=== PATIENT | female | born 1970 | race Caucasian/White ===

== ENCOUNTER 2017-01-10 11:40 | Observation (INO) | payer BC ==
--- NOTE | ~2017-01-10 | HP ---
Unit #: [id number] #: [id number] Patient: LIDYA DELGADO [id number] [address] [place], [place] [address] [id number] I MR#: [id number] NAME: LIDYA DELGADO. ROOM: 39033 Age: 46 Sex: F Admission Date: 01/10/2017 : 1970 Attending Physician: Arlette Kincaid M.D. Primary Care Physician: Faviola Tam A.P.R.N. HISTORY AND PHYSICAL HISTORY OF PRESENT ILLNESS This is a 46-year-old white female who is admitted with the complaint of chest pain. She says for the past three weeks she has had intermittent episodes of substernal chest pressure that radiates to both arms associated with palpitations, dyspnea, and diaphoresis. Her only relief is when she lies down. This morning at 4 a.m. she woke up and had chest pain with nausea. Later she vomiting nonbloody emesis. She had diaphoresis and felt her heart beating fast. She was short of breath. She came to the emergency room for evaluation where she was found to have EKG changes with anterolateral ischemia. Previous EKG in 2010 showed no evidence of ischemia. She was treated with aspirin and nitrates. She has risk factors for ischemic heart disease that include hyperlipidemia, diabetes, obesity, nicotine abuse. She has been told in the past that she has had hypertension but is not on medications. PAST MEDICAL HISTORY 1. Hypertension, untreated. 2. Hyperlipidemia. 3. Diabetes mellitus type 2. 4. Obesity. 5. Active smoker. 6. Osteoarthritis. 7. Chronic back pain. PAST SURGICAL HISTORY Back surgery. HOME MEDICATIONS 1. Janumet 50/500 one tablet b.i.d. 2. Baclofen 10 mg t.i.d. p.r.n. 3. Lipitor 20 mg daily. 4. Ultram 50 mg q.i.d. ALLERGIES No known drug allergies. SOCIAL HISTORY The patient is and unemployed. She smokes one pack of cigarettes daily for the past 30 years. She denies illicit drug and alcohol use. FAMILY HISTORY Both parents of cancer. No coronary artery disease in her siblings. PHYSICAL EXAMINATION Unit #: [id number] #: [id number] Patient: LIDYA DELGADO VITAL SIGNS: Blood pressure 140/70, heart rate 78, temperature 97.9, BMI 25. GENERAL: This is a mildly obese, 46-year-old white female who is in no acute respiratory distress. NEUROLOGIC: She is awake, alert, and oriented, presents no focal weaknesses. NECK: Trachea is midline. No thyromegaly or lymphadenopathy. No jugular venous distention. LUNGS: Diminished without rales, rhonchi or wheezes. HEART: S1, S2. Heart sounds normal. No murmurs, rubs, or clicks. Regular rate and rhythm. ABDOMEN: Soft, nontender, good bowel sounds present. No organomegaly. EXTREMITIES: Without leg edema. SKIN: Warm and dry. DIAGNOSTIC STUDIES LABORATORY: Glucose 251, BUN 16, creatinine 0.6, sodium 138, potassium 4.1. CKMB 1.5, troponin less than 0.05. White count 13.2, hemoglobin 12.2, hematocrit 39.6, platelet count 280. IMAGING: Chest x-ray shows questionable scarring or atelectasis in the left lung base. No other active disease. CARDIOVASCULAR: EKG sinus rhythm with the rate of 84 beats per minute with OR interval of 106. There are anterolateral ischemic changes with T-wave inversion in V1 through V5. Question of old inferior infarct with Q waves noted in III and aVF. IMPRESSION 1. Acute coronary syndrome. 2. Hypertension. 3. Hyperlipidemia. 4. Diabetes mellitus type 2. 5. Nicotine abuse. 6. Obesity. PLAN 1. The patient's symptoms are typical for ischemic heart disease. She has multiple risk factors. Will recommend cardiac catheterization. Risks and benefits have been discussed with the patient and she is agreeable. 2. Start her on anticoagulation with aspirin and Lovenox. Will continue statin and add beta blas. 3. TSH and lipid profile will be obtained. 4. Repeat troponin and EKG to rule out myocardial infarction. 5. Encourage the patient to quit smoking. 6. Plan for cardiac catheterization today. Dictated by Sarah Cervantes M.D. AEP/crystal TD: 01/10/2017 17:11 Unit #: [id number] #: [id number] Patient: LIDYA DELGADO JOB #: [id number] HISTORY AND PHYSICAL Page 1 of 1 X Clinton De La Paz APRN X HISTORY AND PHYSICAL
--- NOTE | ~2017-01-10 | EKG ---
PATIENT: LIDYA DELGADO UNIT #: [id number] Ventricular Rate: 69 BPM Atrial Rate: 69 BPM P-R Interval: 124 ms QRS Duration: 82 ms Q-T Interval: 420 ms QTC Calculation(Bezet): 450 ms P [place]: 55 degrees Calculated R [place]: 12 degrees Calculated T [place]: 88 degrees Diagnosis Line: Normal sinus rhythm Diagnosis Line: Inferior infarct (cited on or before 10-JAN-2017) Diagnosis Line: T wave abnormality, consider anterolateral Diagnosis Line: ischemia Diagnosis Line: Abnormal ECG Diagnosis Line: When compared with ECG of 10-JAN-2017 11:49, Diagnosis Line: Nonspecific T wave abnormality, worse in Lateral Diagnosis Line: leads Diagnosis Line: Confirmed by BENITA BABB MD ([id number]) on Diagnosis Line: 01/12/2017 10:43:13 AM INTERPRETING MD: FRANCES
--- NOTE | ~2017-01-10 | EKG ---
PATIENT: LIDYA DELGADO UNIT #: [id number] Ventricular Rate: 84 BPM Atrial Rate: 84 BPM P-R Interval: 106 ms QRS Duration: 86 ms Q-T Interval: 354 ms QTC Calculation(Bezet): 418 ms P [place]: 61 degrees Calculated R [place]: 22 degrees Calculated T [place]: 69 degrees Diagnosis Line: Sinus rhythm with short MT Diagnosis Line: Possible Inferior infarct , age undetermined Diagnosis Line: T wave abnormality, consider anterolateral Diagnosis Line: ischemia Diagnosis Line: Abnormal ECG Diagnosis Line: Significant ST-T wave changes in the anteroseptal Diagnosis Line: and anterolateral leads compared to EKG of Diagnosis Line: 02/14/2011 Diagnosis Line: Diagnosis Line: Confirmed by BENITA BABB MD ([id number]) on Diagnosis Line: 01/10/2017 4:24:24 PM INTERPRETING MD: FRANCES
--- NOTE | ~2017-01-10 | DS ---
Unit #: [id number] #: [id number] Patient: LIDYA DELGADO [id number] [facility]. [place], [place] [address] [id number] I MR#: [id number] NAME: LIDYA DELGADO ROOM: 573 Age: 46 Sex: F Admission Date: 01/10/2017 : 1970 Discharge Date: 01/12/2017 Attending Physician: Arlette Kincaid M.D. Primary Care Physician: Faviola Tam A.P.R.N. DISCHARGE SUMMARY DISCHARGE DIAGNOSES 1. Acute non-ST elevation anterolateral wall myocardial infarction. 2. Status post cardiac catheterization 01/10/[address] Baker at [facility]. Status post PCI with drug-eluting stent to the proximal LAD. 3. Two-dimensional echocardiogram 01/11/2017 showed an ejection fraction of 50%-55% with mild concentric left ventricular hypertrophy. Trivial tricuspid regurgitation. 4. Hypertension. 5. Hyperlipidemia. 6. Carotid bruit. 7. Diabetes mellitus type 2. 8. Nicotine abuse. 9. Chronic back pain. DISCHARGE MEDICATIONS 1. Brilinta 90 mg b.i.d. 2. Protonix 40 mg daily. 3. Baclofen 10 mg t.i.d. p.r.n. 4. Acetaminophen 650 mg q.4 h. p.r.n. 5. Metoprolol tartrate 25 mg b.i.d. 6. Janumet 50/500 mg b.i.d. 7. Lipitor 40 mg daily. 8. Aspirin 81 mg daily. HOSPITAL COURSE The patient is a 46-year-old female who presented to the emergency room with typical symptoms for ischemic heart disease. She complained of substernal chest pain and pressure that radiated to both arms, associated with palpitations, dyspnea and diaphoresis. She had anterolateral ischemic changes noted on electrocardiogram. Because the symptoms were typical, cardiac catheterization was recommended. After informed consent, risks and benefits the patient agreed. She was given aspirin and sublingual nitroglycerin in the emergency room. She was started on beta blas and continued on her home dose of statin. Dr. Baker took the patient to the cardiac catheterization lab, where she was found to have 90% stenosis to the proximal LAD, which was the culprit lesion. The lesion did show evidence of thrombus present. There was successful deployment of a 3.5 x 28 mm Xience stent into the proximal LAD lesion of 90%, reducing that stenosis to 0%. During the cardiac catheterization procedure she was loaded with Brilinta and started on a daily regimen in addition to aspirin. Lipitor was increased. Her initial troponin was negative, but it peaked at 0.63, which ruled her in for an acute myocardial infarction. The following day the patient had some recurrent Unit #: [id number] #: [id number] Patient: LIDYA DELGADO chest discomfort with electrocardiogram changes with deep T wave inversion in leads V1 through V6, 1 and AVL. She was kept an additional day for further monitoring. Her chest pain eventually resolved. Her heart rate and blood pressure remained stable. She had no arrhythmias. She was noted to have a carotid bruit, which needs to be evaluated on an outpatient basis. She is stable for discharge today. PHYSICAL EXAMINATION VITALS: Blood pressure 112/47, heart rate 83. CHEST: Diminished breath sounds. HEART: S1 and S2. Regular rate and rhythm. ABDOMEN: Soft. Bowel sounds present. EXTREMITIES: Without leg edema. Right femoral artery without hematoma or bruising. DIAGNOSTIC DATA LABORATORY: Troponin 0.43, cholesterol 213, triglycerides 205, LDL 132, HDL 40, TSH 0.74. white blood cell count 14.7, hemoglobin 11.0, hematocrit 35.7, platelets 281. DISCHARGE INSTRUCTIONS 1. The patient will be discharged home today. 2. Follow up with Dr. Kincaid in approximately six weeks. 3. The patient has been given a card and our office should call her with an appointment. 4. Because of carotid bruit she would need an outpatient carotid Doppler study for evaluation. 5. Encouraged the patient to quit smoking. 6. The patient has been discharged home on dual antiplatelet therapy with aspirin and Brilinta for at least one year. She has been given two bottles of samples from the office, as well as a 30-day free prescription card, plus a copay card. It has been discussed with the patient that if she finds herself not able to afford Brilinta she is to notify our office immediately. Without Brilinta she is at risk for stent thrombosis, CVA, myocardial infarction and . She verbalized understanding. 7. The patient has been advised to discontinue Ultram and continue on Tylenol. 8. Sublingual nitroglycerin has been provided for recurrent chest pain. 9. Full cardiac catheterization report not available. Dictated by... Clinton De La Paz A.P.R.N. for Melissa Mancini/gz TD: 01/14/2017 08:09 JOB #: [id number] CC[facility] Faviola Tam A.P.R.N. Unit #: [id number] #: [id number] Patient: LIDYA DELGADO DISCHARGE SUMMARY Page 1 of 1 X Clinton De La Paz APRN X DISCHARGE SUMMARY
--- NOTE | ~2017-01-10 | CR72 ---
[facility] A Service of [facility] & [facility] RADIOLOGY TEXT RESULTS PATIENT: LIDYA DELGADO LOCATION: CEDOF [id number] : [birth year] UNIT #: [id number] AGE: [address]: Arlette Kincaid MD SEX: F ORDER DR: [id number] [facility] [address] [facility]. [place], [place] [address] [id number] I MR#: [id number] Acc #: [id number] NAME: LIDYA DELGADO : 1970 SEX: F STUDY DATE/TIME: 01/10/2017 12:22 UNIT: CEDOF ROOM: 25178 STUDY DESCRIPTION: CR Chest Single View Portable Attending Physician: Arlette Kincaid M.D. Ordering Physician: Dean Jhaveri M.D. Primary Care Physician: Faviola Tam A.P.R.N. MEDICAL IMAGING REPORT This report is preliminary unless electronic signature is present EXAM Chest portable 01/10/2017 12:22 hours HISTORY A 3-week history of chest pain, tingling in arms and hands. COMPARISON 02/14/2011 FINDINGS Portable upright chest demonstrates the patient to be slightly rotated to the right. Allowing for this, there is a normal cardiac size and normal aortic contour. There is horizontal linear density at the left base consistent with atelectasis or scar. The lungs are otherwise clear. No effusions. IMPRESSION Patient is rotated to the right. There is linear scar or atelectasis at the left base. The chest film is otherwise normal. Dictated by... Jennifer Rodriguez M.D. THIS IS AN ELECTRONICALLY VERIFIED REPORT Jennifer Rodriguez M.D. at 01/10/2017 4:01 PM SHANEKA/brian TD: 01/10/2017 14:31 JOB #: [id number] MEDICAL IMAGING REPORT Page 1 of 1 COPY
--- NOTE | ~2017-01-10 | EKG ---
PATIENT: LIDYA DELGADO UNIT #: [id number] Ventricular Rate: 62 BPM Atrial Rate: 62 BPM P-R Interval: 136 ms QRS Duration: 84 ms Q-T Interval: 454 ms QTC Calculation(Bezet): 460 ms P [place]: 61 degrees Calculated R [place]: 15 degrees Calculated T [place]: -73 degrees Diagnosis Line: Normal sinus rhythm Diagnosis Line: Possible Inferior infarct (cited on or before Diagnosis Line: 10-JAN-2017) Diagnosis Line: ST and Marked T wave abnormality, consider Diagnosis Line: anterolateral ischemia Diagnosis Line: Abnormal ECG Diagnosis Line: When compared with ECG of 10-JAN-2017 20:26, Diagnosis Line: (unconfirmed) Diagnosis Line: T wave inversion now evident in Inferior leads Diagnosis Line: Inverted T waves have replaced nonspecific T wave Diagnosis Line: abnormality in Lateral leads Diagnosis Line: Confirmed by BENITA BABB MD ([id number]) on Diagnosis Line: 01/12/2017 11:11:10 AM INTERPRETING : FRANCES
[~2017-01-10 11:40] MED LIST: IBUPROFEN800 MG PO
[2017-01-10 12:48] LABS: BASOPHIL# 0.1 X10e3 (0-0.3); BASOPHIL% 1.1 % (0-2.5); EOSINOPHIL# 0.5 X10e3 (0-0.7); EOSINOPHIL% 3.6 % (0.0-7.0); HEMATOCRIT 39.6 % (35.0-45.0); HEMOGLOBIN 12.2 gm/dL (12.0-16.0); LYMPHOCYTE# 2.3 X10e3 (1.0-3.5); LYMPHOCYTE% 17.2 % (17.0-45.0); MEAN CELL VOLUME 75.6 FL (83-96); MEAN CORPUSCULAR HEMOGLOBIN 23.4 PG (28-34); MEAN CORPUSCULAR HGB CONC 30.9 g/dL (30-36); MEAN PLATELET VOLUME 8.9 FL (6.5-11.5); MONOCYTE# 1.3 X10e3 (0-1.0); MONOCYTE% 9.6 % (3.0-12.0); NEUTROPHIL% 68.5 % (40-75); PLATELET COUNT 280 X10e3 (140-420); RED BLOOD COUNT 5.23 X10e (3.90-5.30); RED CELL DISTRIBUTION WIDTH 19.1 % (11.0-15.5); WHITE BLOOD COUNT 13.2 X10e3 (4.0-10.5)
[2017-01-10 12:49] LABS: DIFF IND NO
[2017-01-10 12:58] LABS: POC - CKMB 1.5 ng/mL (0.0-7.9); POC - TROPONIN <0.05 ng/mL (<=0.05)
[2017-01-10] MEDS ORDERED: PATIENT'S PHARMACY (12:58)
[2017-01-10 12:59] LABS: INR 0.9; PARTIAL THROMBOPLASTIN TIME 22.9 SECONDS (23.5-31.3); PROTHROMBIN TIME (PATIENT) 10.2 SECONDS (10.0-11.7)
[2017-01-10] MEDS ORDERED: LIORESAL10 MG PO (13:04)
[2017-01-10] MEDS ORDERED: JANUMET 50-5001 EACH PO (13:04)
[2017-01-10] MEDS ORDERED: LIPITOR20 MG PO (13:04)
[2017-01-10] MEDS ORDERED: ULTRAM PO (13:05)
[2017-01-10 13:11] LABS: BILIRUBIN, DIRECT 0.1 mg/dL (0.0-0.2); BILIRUBIN,INDIRECT 0.7 mg/dL (0.0-0.9); BILIRUBIN,TOTAL 0.8 mg/dL (0.2-2.0); BUN/CREATININE RATIO 26.66; CREATININE SERUM 0.6 mg/dL (0.6-1.4); GLOM FILT RATE Estimated 109.3 mL/min (>60); POTASSIUM 4.1 mmol/L (3.5-5.1); PROTEIN TOTAL SERUM 7.3 g/dL (6.0-8.3)
[2017-01-10 14:47] LABS: POC - CKMB 2.4 ng/mL (0.0-7.9); POC - TROPONIN 0.14 ng/mL (<=0.05)
[2017-01-10 20:43] LABS: MB 5.6 ng/ml
[2017-01-11 03:10] LABS: BASOPHIL# 0.2 X10e3 (0-0.3); DIFF IND YES; EOSINOPHIL# 0.5 X10e3 (0-0.7); HEMATOCRIT 34.4 % (35.0-45.0); HEMOGLOBIN 10.7 gm/dL (12.0-16.0); LYMPHOCYTE# 2.5 X10e3 (1.0-3.5); LYMPHOCYTE% 15.5 % (17.0-45.0); MEAN CELL VOLUME 74.7 FL (83-96); MEAN CORPUSCULAR HEMOGLOBIN 23.3 PG (28-34); MEAN CORPUSCULAR HGB CONC 31.2 g/dL (30-36); MEAN PLATELET VOLUME 8.7 FL (6.5-11.5); MONOCYTE# 1.8 X10e3 (0-1.0); MONOCYTE% 11.2 % (3.0-12.0); NEUTROPHIL# 11.1 X10e3 (1.5-7.1); NEUTROPHIL% 69.3 % (40-75); PLATELET COUNT 276 X10e3 (140-420); RED CELL DISTRIBUTION WIDTH 18.7 % (11.0-15.5)
[2017-01-11 03:47] LABS: ANISOCYTOSIS MOD; MICROCYTOSIS SL; OVALOCYTES PRESENT; PLATELET ESTIMATE NORMAL (NORMAL); POIKILOCYTOSIS SL
[2017-01-11 03:50] LABS: CHOLESTEROL 213 mg/dL (0-200); HDL CHOLESTEROL 40 mg/dL (35-95); LDL/HDL RATIO 3 RATIO (0-4); TRIGLYCERIDES 205 mg/dL (10-160)
[2017-01-11 03:51] LABS: LDL CHOLESTEROL 132 mg/dL (-130)
[2017-01-11 04:04] LABS: %MB 8.9 % (0.0-4.0)
[2017-01-11 19:25] LABS: URINE APPEARANCE CLOUDY; URINE BILIRUBIN NEG (NEG); URINE BLOOD NEG (NEG); URINE COLOR YELLOW; URINE GLUCOSE 100 MG/DL (NEG); URINE KETONE NEG (NEG); URINE LEUKOCYTE ESTERASE NEG (NEG); URINE NITRATE NEG (NEG); URINE PROTEIN NEG (NEG); URINE SPECIFIC GRAVITY 1.027 (1.003-1.035)
[2017-01-12 05:36] LABS: HEMATOCRIT 35.7 % (35.0-45.0); MEAN CELL VOLUME 75.4 FL (83-96); MEAN CORPUSCULAR HEMOGLOBIN 23.3 PG (28-34); MEAN CORPUSCULAR HGB CONC 30.9 g/dL (30-36); MEAN PLATELET VOLUME 8.9 FL (6.5-11.5); RED BLOOD COUNT 4.73 X10e (3.90-5.30); RED CELL DISTRIBUTION WIDTH 18.6 % (11.0-15.5); WHITE BLOOD COUNT 14.7 X10e3 (4.0-10.5)
[2017-01-12] MEDS ORDERED: LIPITOR40 MG PO (08:49)
[2017-01-12] MEDS ORDERED: METOPROLOL TART25 MG PO (08:50)
[2017-01-12] MEDS ORDERED: CHEWABLE ASPIRI81 MG PO (08:50)
[2017-01-12] MEDS ORDERED: BRILINTA90 MG PO (08:51)
[2017-01-12] MEDS ORDERED: ACETAMINOPHEN650 M3 PO (08:51)
[2017-01-12] MEDS ORDERED: PROTONIX PO (08:52)
[2017-01-12] MEDS ORDERED: NITROGLYGERIN0.4 MG SL (09:31)
== END 2017-01-12 11:07 | disposition home or self-care (01) | DRG 282 ==
LOC: CED 11:40 → CEDOF 13:10 → CED 14:12 → CEDOF 14:12 → C5C 17:56
PROVIDERS: Emergency Medicine; Internal Medicine Cardiovascular Disease
DX: I21.4 Non-ST elevation (NSTEMI) myocardial infarction (principal); I25.10 Atherosclerotic heart disease of native coronary artery without angina pectoris; Z95.5 Presence of coronary angioplasty implant and graft; I10 Essential (primary) hypertension; E78.5 Hyperlipidemia, unspecified; E11.9 Type 2 diabetes mellitus without complications; E66.9 Obesity, unspecified; F17.210 Nicotine dependence, cigarettes, uncomplicated; M54.9 Dorsalgia, unspecified; G89.29 Other chronic pain; Z79.84 Long term (current) use of oral hypoglycemic drugs; Z79.02 Long term (current) use of antithrombotics/antiplatelets; Z79.82 Long term (current) use of aspirin; R09.89 Other specified symptoms and signs involving the circulatory and respiratory systems
CPT/HCPCS: 93458; C9600; 36415; 71010; 80048; 80061; 80076; 81003; 82550; 82553; 82947; 84443; 84484; 84703; 85025; 85027; 85347; 85610; 85730; 87086; 93005; 93306; 96361; 96374; 96376; 99285; C1725; C1760; C1769; C1874; C1894; C9113; G0378; J0153; J1644; J1815; J2250; J3010

== ENCOUNTER → 2017-02-04 | Outpatient (CLI) | payer BC ==
[~2017-02-04] MED LIST changes: +ACETAMINOPHEN650 M3 PO; +BRILINTA90 MG PO; +CHEWABLE ASPIRI81 MG PO; +JANUMET 50-5001 EACH PO; +LIORESAL10 MG PO; +LIPITOR20 MG PO; +LIPITOR40 MG PO; +METOPROLOL TART25 MG PO; +NITROGLYGERIN0.4 MG SL; +PATIENT'S PHARMACY; +PROTONIX PO; +ULTRAM PO
--- NOTE | ~2017-02-04 | US37 ---
[facility] A Service of [facility] RADIOLOGY TEXT RESULTS PATIENT: LIDYA DELGADO LOCATION: CNIV : [birth year] UNIT #: [id number] AGE: [address]: Arlette Kincaid MD SEX: F ORDER DR: [id number] [facility] [address]. [place], [place] [address] [id number] O MR#: [id number] Acc #: [id number] NAME: LIDYA DELGADO : 1970 SEX: F STUDY DATE/TIME: 02/04/2017 10:20 UNIT: CNIV ROOM: STUDY DESCRIPTION: US Carotid W/Doppler Bilateral Attending Physician: Arlette Kincaid M.D. Referring Physician: Arlette Kincaid M.D. Ordering Physician: Arlette Kincaid M.D. Primary Care Physician: Faviola Tam A.P.R.N. MEDICAL IMAGING REPORT This report is preliminary unless electronic signature is present EXAM Bilateral carotid Doppler HISTORY Carotid bruits FINDINGS The right common carotid, internal carotid and external carotid arteries are patent without plaque or intimal thickening. Velocity of the common carotid artery is 72 cm/sec. Peak systolic velocity of the right proximal internal carotid artery is 67 cm/sec with an end diastolic velocity of 26 cm/sec for an ICA/CC ratio of 0.93. External carotid artery velocity of 80 cm/sec. The vertebral artery is visualized with antegrade flow. The left common carotid, internal carotid and external carotid arteries without plaque or intimal thickening. Velocity of the common carotid artery is 80 cm/sec. Peak systolic velocity of the left proximal internal carotid artery is 62 cm/sec with an end diastolic velocity of 28 cm per second for an ICA/CCA ratio of 0.78. External carotid artery had a velocity of 70 cm/sec. The vertebral artery is visualized with antegrade flow. IMPRESSION 1. Normal appearance of the right and left internal carotid arteries. 2. No stenosis of the external carotid arteries. 3. Antegrade flow of the vertebral arteries. Dictated by... Tim Ruiz M.D. [facility] A Service of [facility] & [facility] RADIOLOGY TEXT RESULTS PATIENT: LIDYA DELGADO LOCATION: [facility] : [birth year] UNIT #: [id number] AGE: [address]: Arlette Kincaid MD SEX: F ORDER DR: THIS IS AN ELECTRONICALLY VERIFIED REPORT Tim Ruiz M.D. at 02/05/2017 8:27 AM Kaleb TD: 02/04/2017 23:51 JOB #: [id number] MEDICAL IMAGING REPORT Page 1 of 1 COPY
== END | disposition home or self-care (01) ==
LOC: CNIV 09:56
DX: R09.89 Other specified symptoms and signs involving the circulatory and respiratory systems (principal)
CPT/HCPCS: 93880